=== PATIENT | male | born 2005 | race Caucasian/White ===

== ENCOUNTER 2024-12-05 16:50 | Emergency (ER) | payer OTHER, SELFPAY ==
[2024-12-05] VITALS (10 sets, daily range): BP systolic 100–133; BP diastolic 56–81; PULSE 70–120; RESP 18–20; TEMP 36.8–37.1; O2SAT 98–99; BMI 22.0
--- NOTE | 2024-12-05 17:12 | ECG_ITS ---
Test Reason : SYNCOPEE Blood Pressure : */* mmHG Vent. Rate : 97 BPM Atrial Rate : 97 BPM P-R Int : 132 ms QRS Dur : 98 ms QT Int : 342 ms P-R-T Axes : 38 10 49 degrees QTcB Int : 434 ms Normal sinus rhythm with sinus arrhythmia RSR' or QR pattern in V1 suggests right ventricular conduction delay Borderline ECG No previous ECGs available Referred By: Megan Salinas Electronically Signed By: LACY FLORES MD
--- NOTE | 2024-12-05 17:19 | ED.DIZZY ---
HPI - Dizziness General Chief Complaint: Dizziness Stated Complaint: Dizzy Time Seen by Provider: 12/05/24 17:00 Source: patient and RN notes reviewed Mode of arrival: ambulatory Limitations: no limitations History of Present Illness ED Provider: Megan Salinas PA-C HPI Narrative: This is a 19-year-old male, with a past medical history of depression and anxiety on Lexapro, and congenital solitary kidney, who presents emergency department with concerns for near syncopal episode which occurred today. Patient states that he was up late last night as he is a resident care coordinator at [employer]. He states that he had [address] and drove 2 hours for a first date. He states that 30 minutes prior to the date he started to feel as if he was going to pass out, and he got out of the car and walked around his car several times in his symptoms alleviated. He states that he ate a burrito as well as frozen yogurt and states that while he was sitting down he felt dizziness lightheadedness and felt like he was going to pass out. He states that he went to the bathroom and felt like he wanted to lay down. He states that this lasted for approximately 20 minutes in the ambulance was called. He states that his symptoms started to alleviate up until when he tried to stand up he felt his vision go black and felt as if he was going to pass out. He did not pass out. He states he denies history of similar symptoms in the past. 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 No recent illness. No fevers, chills, chest pain, shortness of breath, abdominal pain, nausea, vomiting. Denies taking any medications at home to treat his current symptoms. No recent travel, surgery, or hospitalizations. No other complaints or concerns at this time. elicited complaint: near syncope Onset (ago): hour(s) Timing: episodic Severity: moderate Description: lightheadedness and near-syncope Context: anxiety History of similar symptoms: No Exacerbating factors: change in body position Associated symptoms: denies other symptoms Related Data Allergies Allergy/AdvReac Type Severity Reaction Status Date / Time No Known Allergies Allergy Verified 12/05/24 17:07 Review of Systems Review of Systems: Yes all other systems are reviewed and are negative [facility] Social History Social History Unable to assess alcohol history related to: Unknown Use of substances other than those prescribed or required for medical reasons: Unknown Advance Directives: No Advance Directives Information Provided: No Do you have a plan to hurt others: No Plan Physical Exam Vital Signs: Vital Signs: Last Vital Signs Temp 98.4 F 12/05/24 22:18 Pulse 78 12/05/24 22:22 Resp 20 12/05/24 22:18 BP 126/61 12/05/24 22:22 Pulse Ox 98 12/05/24 22:18 O2 Del Method Room Air 12/05/24 22:18 BMI result Body Mass Index 22.0 NIH Stroke Scale Internal: Initial- Upon Arrival Level of Consciousness: Alert Level of Consciousness Questions: Answers both questions correctly Level of Consciousness Commands: Performs both tasks correctly Best Gaze: Normal Visual: No visual loss Facial Palsy: Normal Motor Arm (Right): No drift Motor Arm (Left): No drift Motor Leg (Right): No drift Motor Leg (Left): No drift Limb Ataxia: Absent Sensory: Normal Best Language: No aphasia Dysarthia: Normal Extinction and Inattention: No abnormality Score: 0 Course Reevaluation(s) Reevaluation #1: Orthostatics performed, patient with pustule oral tachycardia, increased from 80-120 upon standing. No hypotension seen. Patient would benefit from IV fluids. Likely dehydration secondary to diarrhea that he has had over the last several days. Will medicate with 2 L of IV normal saline. Sign-out given to my colleague, Abram Ferris PA-C pending repeat orthostatics, and re-evaluation. Reevaluation #2: patient re-evaluated, orthostatic vital signs have improved, the patient feels well in his stable for discharge home. Time: 23:04 Medications Administered Discontinued Medications Generic Name Dose Route Start Last Admin Trade Name Freq PRN Reason Stop Dose Admin Lactated Ringer's 2,000 mls @ 999 mls/hr 12/05/24 19:10 12/05/24 21:21 Lr IV 12/05/24 21:10 999 mls/hr .Q2H1M ONE Administration Medical Decision Making Medical Decision Making MDM Narrative: This is a 19-year-old male who presents emergency department for evaluation of near-syncope. On arrival, vital signs within normal limits. He is speaking in full sentences under no acute distress. He has an NIH score of 0. Differential diagnoses include electrolyte derangement, orthostatic hypotension, dehydration, anxiety, ACS - unlikely, PE -unlikely. Patient is not hypoxic, or tachycardic, no chest pain, no risk factors, PERC 0. Plan: Labs, EKG, orthostatic vital signs Differential Diagnosis Differential Diagnoses: The differential diagnosis associated with the presentation includes See above Lab Data MDM Lab Attestation statement: I reviewed the patient's lab results. No leukocytosis, stable H&H, platelets mildly elevated at 428, slight left shift noted, chemistry with no significant electrolyte derangement AST and ALT slightly elevated. Negative troponin. Negative viral swabs. 12/05/24 18:17 12/05/24 18:17 Labs: Lab Results 12/05/24 Range/Units 18:17 WBC 10.1 (4.8-10.8) X10*3/uL RBC 4.92 (4.60-5.80) X10*6/uL Hgb 15.2 (14.0-18.0) g/dl Hct 45.1 (42.0-52.0) % MCV 91.7 (80.0-98.0) fL MCH 30.9 (27.0-33.0) pg MCHC 33.7 (31.0-36.0) g/dl RDW 12.1 (11.0-16.0) % Plt Count 428 H (160-400) X10*3/uL MPV 8.7 L (9.4-12.4) fL Immature Gran % (Auto) 0.3 (0.0-0.4) % Neut % (Auto) 76.3 H (45-73) % Lymph % (Auto) 14.7 L (20-40) % [place] % (Auto) 7.4 (2-11) % Eos % (Auto) 0.9 (0-4) % Baso % (Auto) 0.4 (0-2) % Lymph # (Auto) 1.5 (1.2-4.9) X10*3/uL [place] # (Auto) 0.8 (0.1-1.2) X10*3/uL Eos # (Auto) 0.1 (0.0-0.4) X10*3/uL Baso # (Auto) 0.0 (0.0-0.2) X10*3/uL Abs Immat Gran (auto) 0.03 (0.00-0.03) X10*3/uL Absolute Neuts (auto) 7.7 (2.0-8.3) x10*3/uL Absolute Nucleated RBC 0.000 (0.0-0.012) X10*3/uL Nucleated RBC % (auto) 0.0 (0.0-0.2) /100WBC PT 12.1 (10.9-12.4) SEC INR 1.0 (0.9-1.1) Sodium 142 (135-145) mmol/L Potassium 4.2 (3.3-5.1) mmol/L Chloride 106 (96-108) mmol/L Carbon Dioxide 25 (22-29) mmol/L Anion Gap 15 (12-20) BUN 13 (9-16) mg/dL Creatinine 0.99 (0.5-1.4) mg/dL Estim Creat Clear Calc 106.5 Estimated GFR > 60 Random Glucose 103 (60-115) mg/dL Calcium 9.6 (8.4-10.2) mg/dL Magnesium 2.2 (1.6-2.6) mg/dL Total Bilirubin 0.6 (0.0-1.0) mg/dL Direct Bilirubin 0.2 (0.0-0.5) mg/dL AST 61 H (5-37) U/L ALT 52 H (0-40) U/L Alkaline Phosphatase 74 (39-117) U/L Troponin I High Sens < 2.7 (<3.5-35.0) ng/L Total Protein 7.6 (6.5-8.0) g/dL Albumin 4.6 (3.5-5.0) g/dL Urine Color Yellow Urine Appearance Clear Urine pH 6.0 (5.0-9.0) Ur Specific [place] 1.010 (1.005-1.025) Urine Protein Negative (Neg-Trace) mg/dL Urine Glucose (UA) Negative (Negative) mg/dL Urine Ketones Negative (Negative) mg/dL Urine Blood Negative (Negative) Urine Nitrite Negative (Negative) Ur Leukocyte Esterase Negative (Negative) Influenza Type A (PCR) NEGATIVE (Negative) Influenza Type B (PCR) NEGATIVE (Negative) RSV RNA Qual (PCR) NEGATIVE (Negative) SARS-CoV-2 RNA (RT-PCR) NEGATIVE (Negative) Independent Interpretation I performed an independent interpretation of an: EKG Interpretation: Normal sinus rhythm at a ventricular rate of 97 beats per minute, OH interval 132, QT QTC 342/434. Discharge Plan Discharge Clinical Impression: Near syncope, Postural orthostatic tachycardia syndrome Patient Disposition: Home, Self-Care Instructions: Near Syncope (ED) Additional Instructions: You were seen in the emergency department due to near syncopal symptoms. You likely are dehydrated secondary to the diarrhea that you have had over the last several days. We had given you IV fluids. Please follow-up with your primary care physician regarding this visit. Drink plenty of fluids get plenty of rest. If any new or worsening symptoms occur including but not limited to severe chest pain, shortness for breath, please seek emergent care. Print Language: Sinhala
[2024-12-05 18:26] LABS: MANUAL DIFF FLAG NO
[2024-12-05 18:27] LABS: Basophils Percent Auto 0.4 % (0-2); Eosinophils Absolute Auto 0.1 X10*3/uL (0.0-0.4); Eosinophils Percent Auto 0.9 % (0-4); Hematocrit 45.1 % (42.0-52.0); Hemoglobin 15.2 g/dl (14.0-18.0); Imm Gran Abs Auto 0.03 X10*3/uL (0.00-0.03); Imm Gran Pct Auto 0.3 % (0.0-0.4); Lymphocytes Absolute Auto 1.5 X10*3/uL (1.2-4.9); Lymphocytes Percent Auto 14.7 % (20-40); Mean Corpuscular HGB Conc 33.7 g/dl (31.0-36.0); Mean Corpuscular Hemoglobin 30.9 pg (27.0-33.0); Mean Corpuscular Volume 91.7 fL (80.0-98.0); Mean Platelet Volume 8.7 fL (9.4-12.4); Monocytes Absolute Auto 0.8 X10*3/uL (0.1-1.2); Monocytes Percent Auto 7.4 % (2-11); Neutrophils Absolute Auto 7.7 x10*3/uL (2.0-8.3); Neutrophils Percent Auto 76.3 % (45-73); Platelet Count 428 X10*3/uL (160-400); Red Blood Count 4.92 X10*6/uL (4.60-5.80); Red Cell Distribution Width 12.1 % (11.0-16.0); White Blood Count 10.1 X10*3/uL (4.8-10.8)
[2024-12-05 18:28] LABS: Appearance Urine Clear; Color Urine Yellow; Glucose Urine UA Negative (Negative); Leukocyte Esterase Urine Negative (Negative); Nitrite Urine Negative (Negative); Urine Blood Negative (Negative); Urine Ketones Negative (Negative); Urine Protein Negative (Neg-Trace)
[2024-12-05 18:33] LABS: Prothrombin Time 12.1 SEC (10.9-12.4)
[2024-12-05 18:45] LABS: Alanine Aminotransferase 52 U/L (0-40); Albumin Level 4.6 g/dL (3.5-5.0); Alkaline Phosphatase 74 U/L (39-117); Anion Gap 15 (12-20); Aspartate Amino Transferase 61 U/L (5-37); Bilirubin Direct 0.2 mg/dL (0.0-0.5); Bilirubin Total 0.6 mg/dL (0.0-1.0); Blood Urea Nitrogen 13 mg/dL (9-16); Calcium 9.6 mg/dL (8.4-10.2); Carbon Dioxide 25 mmol/L (22-29); Chloride 106 mmol/L (96-108); Creatinine Clr Calc Pharmacy 106.5; Estimated Glomerular Filt Rate > 60; Glucose Random 103 mg/dL (60-115); Magnesium 2.2 mg/dL (1.6-2.6); Potassium 4.2 mmol/L (3.3-5.1); Sodium 142 mmol/L (135-145); Total Protein 7.6 g/dL (6.5-8.0)
[2024-12-05 18:54] LABS: Troponin-I High Sensitivity < 2.7 ng/L (<3.5-35.0)
[2024-12-05 19:04] LABS: Influenza A PCR NEGATIVE (Negative); Influenza B PCR NEGATIVE (Negative); Resp Syncy Virus RNA Qual PCR NEGATIVE (Negative); SARS COV2 PCR INHOUSE NEGATIVE (Negative)
[2024-12-05] MEDS: Lactated Ringers 2,000 ML 999 ML IV (21:21)
== END 2024-12-05 23:37 | disposition home or self-care (01) ==
PROVIDERS: Physician Assistant Medical; Emergency Provider Emergency Medicine
DX: R55 Syncope and collapse (principal); G90.A Postural orthostatic tachycardia syndrome [POTS]; R42 Dizziness and giddiness; F33.1 Major depressive disorder, recurrent, moderate; I49.8 Other specified cardiac arrhythmias; F41.9 Anxiety disorder, unspecified; Z79.899 Other long term (current) drug therapy; Z03.818 Encounter for observation for suspected exposure to other biological agents ruled out
CPT/HCPCS: 0241U; 36415; 80048; 80076; 81003; 83735; 84484; 85025; 85610; 93005; 99283; 99285; J7120

== ENCOUNTER → 2024-12-05 17:12 | Outpatient (BNV) | payer OTHER, SELFPAY | PROVIDERS: Emergency Provider Emergency Medicine; Visit Provider Internal Medicine Cardiovascular Disease | DX: R55 Syncope and collapse (principal) | CPT/HCPCS: 93010 ==